=== PATIENT | female | born 1955 | race Caucasian/White ===

== ENCOUNTER 2021-12-19 05:56 | Day surgery (SDC) | payer MEDICARE, OTHER ==
[2021-12-19] MEDS ORDERED: Marcaine Mpf 0.5% Vial 30 Ml IJ ONE (05:57)
[2021-12-19] MEDS ORDERED: XYLOCAINE 1% HCL 20 ML MDV ONE (06:12)
[2021-12-19] MEDS ORDERED: Zemuron 100 MG/10 ML ONE (06:42)
[2021-12-19] MEDS ORDERED: DIPRIVAN 200 MG/20 ML IV ONE (06:42)
[2021-12-19] MEDS ORDERED: Versed 2 MG/2 ML Injection ONE (06:43)
[2021-12-19] MEDS ORDERED: SUBLIMAZE 100 MCG/2 ML ONE (06:43)
[2021-12-19] MEDS ORDERED: Lactated Ringers 1,000 ML IV ONE (06:44)
[2021-12-19] MEDS ORDERED: CEFAZOLIN 2 GM-D5W BAG** 2 GM/50 ML ML IV ONE (06:44)
[2021-12-19] MEDS ORDERED: Lactated Ringers 1,000 ML IV SCH (07:00)
[2021-12-19] MEDS ORDERED: CEFAZOLIN 2 GM-D5W BAG** 2 GM/50 ML ML IV SCH (07:00)
[2021-12-19] MEDS ORDERED: Xylocaine-Mpf 2% 5 Ml Vial ONE (07:27)
[2021-12-19 07:29] LABS: ALBUMIN 3.7 g/dL (3.5-5.0); ANION GAP 8.8 MEQ/L (5-15); BILIRUBIN,TOTAL 0.6 mg/dL (0.2-1.3); Calcium 8.9 mg/dL (8.4-10.2); Creatinine 1 1.03 mg/dL (0.52-1.04); EST GLOMERULAR FILTRATION RATE 56.6 ML/MIN; Potassium 3.2 mmol/L (3.5-5.1); Total Protein 6.8 g/dL (6.3-8.2)
[2021-12-19] MEDS ORDERED: Ephedrine Sulfate 50 MG/ML ONE (07:36)
[2021-12-19] MEDS ORDERED: BRIDION 200MG/2ML IV ONE (08:55)
--- NOTE | 2021-12-19 09:18 | XRAY ---
1 minute and 18 seconds of fluoroscopy was used in surgery for right foot 1st MTP bunionectomy and arthrodesis.
[2021-12-19 10:04] VITALS: BP 138/74
[2021-12-19 10:15] VITALS: PULSE 53; O2SAT 95
--- NOTE | 2021-12-22 11:34 | XRAY ---
Indication: Right foot 1st MTP bunionectomy and arthrodesis. Intraoperative fluoroscopy provided for 1 minute 18 seconds. 8 digital spot images submitted for interpretation ultimately demonstrates 1st MTP bunionectomy with intact fixation plate/screws. Correlate with intraoperative findings/report.
--- NOTE | 2021-12-22 11:47 | OP ---
SURGERY DATE/TIME: 12/19/2021 0721 PREOPERATIVE DIAGNOSES: 1) Osteoarthritis right first metatarsophalangeal joint. 2) Hallux abductovalgus right foot. 3) Pain right foot. POSTOPERATIVE DIAGNOSES: 1) Osteoarthritis right first metatarsophalangeal joint. 2) Hallux abductovalgus right foot. 3) Pain right foot. PROCEDURE: Arthrodesis first metatarsophalangeal joint. SURGEON: Terrence Wells DPM. CONSTRUCTION ESTIMATOR: None. ANESTHESIA: General plus postoperative local consisting of 3 cc of a 1:1 mixture of 1% lidocaine plain and 0.5% bupivacaine plain injected in a Taylor block. HEMOSTASIS: Ankle tourniquet set to 250 mm of Mercury for 54 minutes. ESTIMATED BLOOD LOSS: Less than 3 cc. MATERIALS: Yvon ALPS first metatarsophalangeal plate with a 4.0 x 34 mm VPC screw, 4-0 Monocryl, 3-0 Nylon. INJECTABLES: 30 cc total of a 1:1 mixture of 1% lidocaine plain and 0.5% bupivacaine plain. INDICATION FOR SURGERY: Vera is a very pleasant 66-year-old female who presents today for correction of her bunion deformity as well as addressing the pain that she has been experiencing to the right foot secondary to osteoarthritis. The patient has been dealing with this issue for quite some time and wishes to proceed with surgical intervention due to the fact that this causes her significant amount of pain with ambulation in specific shoe gear. The patient indicates that she has had significant pain for some time and the arthritis of the joint has progressed to the point where there is restriction in range of motion as well as pain with range of motion on her clinical examination. Options were discussed and the patient wishes to proceed with the fusion procedure understanding that the big toe joint will be fused and she will be unable to move it as well as be unable to wear heels higher than 2 inches high. The patient understands all risks, complications and benefits of surgical intervention including but not limited to delayed skin healing, nonskin healing, delayed bone healing, nonbone healing, periprosthetic fracture, possibly irritating hardware and need for surgical intervention at a later date. The patient understands all of the risks and wishes to proceed. No guarantees were provided as to the outcome of the procedure. It is with that we decided to proceed. DESCRIPTION OF PROCEDURE AND FINDINGS: The patient was brought into the OR and placed on the OR table in the supine position. At this time a well-padded ankle tourniquet was applied to the patient's right ankle and the tourniquet was set to 250 mm of Mercury. At this time the right lower extremity was prepped and draped in the typical sterile fashion and lowered onto the surgical field. At this time Esmarch was utilized to exsanguinate the leg and the tourniquet was inflated to 250 mm of Mercury. At this time, a linear incision made just medial to the extensor hallucis longus tendon being careful not to damage any neurovascular structures with a 16 blade with an incision measuring approximately 6 cm in length. At this time the incision was deepened to the layer of the capsule layer. The extensor hallucis longus was retracted laterally and freed from the soft tissue attachments. Once this occurred, the capsule of the first metatarsophalangeal joint was reflected with a linear incision and the capsule was exposed exposing the metatarsophalangeal joint. At this time the head of the metatarsal was inspected demonstrating significant osteoarthritis and denuding of the cartilage at the dorsal aspect as well as plantar medial aspect of the joint surface. A K-wire was introduced down to the dorsal longitudinal aspect of the cortex of the first metatarsal and cup and cone reamer was utilized to denude the cartilage off of the metatarsal head and the base of the proximal phalanx. At this time copious amounts of sterile saline were utilized to flush the surgical site. Fenestrations were made into the joint surface utilizing 2-0 drill bit. Following this, a K-wire was utilized to introduce a cannulated screw from distal medial to proximal lateral under fluoroscopic guidance this was checked and position was deemed to be adequate. Following this a dorsal first metatarsophalangeal plate from Yvon was introduced and locked down utilizing an BB tack distal locking screws were introduced and then an eccentric screw was placed at the second to last hole proximally in order to gain further compression at the joint surface. The remaining screws were filled utilizing a combination of locking and nonlocking screws this was checked under fluoroscopic guidance and deemed to be adequate. Following this copious amounts of sterile saline were utilized to flush the surgical site. Final images were taken on fluoroscopy and 4-0 Monocryl utilized to close the capsule in a continuous interlocking suture with Monocryl then the subcutaneous tissue was coapted in a simple buried-type fashion and then a horizontal mattress-type incision closure was utilized to close the surgical site at the first metatarsophalangeal joint. Following this 30 cc of a 1:1 mixture of 1% lidocaine plain and 0.5% bupivacaine plain were injected in Taylor block-type fashion to the right foot. Following this dressings consisting of Betadine, Adaptic, 4x4, Kerlix and KARLIE were then applied to the right lower extremity. The patient then was reversed from anesthesia and returned to the postoperative anesthesia care unit with vital signs stable and vascular status intact. The patient handled the anesthesia as well as the procedure without significant complication. Postoperative orders as indicated in the patient's discharge chart.
== END 2021-12-19 10:35 | disposition home or self-care (01) ==
LOC: SDC 05:56
PROVIDERS: ATTEND Podiatrist Foot & Ankle Surgery
DX: M19.071 Primary osteoarthritis, right ankle and foot (principal); M20.11 Hallux valgus (acquired), right foot; M79.671 Pain in right foot
CPT/HCPCS: 28750; 36415; 73630; 76000; 80053; 93005; C1713; J0690; J2250; J2704; J3010